=== PATIENT | female | born 1945 | race Caucasian/White ===

== ENCOUNTER 2025-06-13 17:27 | Emergency (ER) | payer MEDICARE, BC ==
[~2025-06-13] VITALS: Ht 170.2 cm; Wt 61.2 kg
[2025-06-13 17:33] VITALS: BP 172/81
[2025-06-13] MEDS ORDERED: IBUPROFEN 600 MG TABLET ONE (18:31)
[2025-06-13] MEDS: IBUPROFEN 600 MG TABLET PO ONE (18:41)
[2025-06-13 18:58] VITALS: BP 141/77; O2SAT 97
== END 2025-06-13 18:59 | disposition home or self-care (01) ==
LOC: ER 17:37
DX: S52.531A Colles' fracture of right radius, initial encounter for closed fracture (principal); W18.39XA Other fall on same level, initial encounter; Y93.89 Activity, other specified; Y92.89 Other specified places as the place of occurrence of the external cause; Y99.9 Unspecified external cause status
CPT/HCPCS: 73100; A4606; A4663